=== PATIENT | female | born 1965 | race Caucasian/White ===

== ENCOUNTER 2016-12-16 14:47 | Emergency (ER) | payer MEDICAID ==
[~2016-12-16] VITALS: Ht 167.6 cm; Wt 65.8 kg
[~2016-12-16 14:47] MED LIST: AMOX-426 PO; HYDR-1189 PO
[2016-12-16 14:50] VITALS: BP 150/69; PULSE 94; RESP 18; TEMP 97.1; O2SAT 95
[2016-12-16] MEDS ORDERED: SODIUM BICARBONATE 8.4% VIAL 50 MEQ/50 ML VIAL INJ ONE (17:30)
[2016-12-16] MEDS ORDERED: LIDOCAINE/EPI 2% 1:100000 20 ML VIAL INJ ONE (17:30)
[2016-12-16] MEDS ORDERED: AMOXICILLIN/CLAVULANATE POTASSIUM 875 MG TABLET PO ONE (17:45)
[2016-12-16 18:31] VITALS: BP 133/68; PULSE 78; RESP 20; TEMP 98.3; O2SAT 99
== END 2016-12-16 18:31 | disposition home or self-care (01) ==
LOC: SED 14:47
DX: S90.852A Superficial foreign body, left foot, initial encounter (principal); W22.8XXA Striking against or struck by other objects, initial encounter; Y93.H9 Activity, other involving exterior property and land maintenance, building and construction; Y92.59 Other trade areas as the place of occurrence of the external cause; Y99.8 Other external cause status
CPT/HCPCS: 99284

== ENCOUNTER 2019-04-08 16:48 | Emergency (ER) | payer MEDICAID ==
[~2019-04-08] VITALS: Ht 167.6 cm; Wt 98.9 kg
[2019-04-08 17:16] VITALS: BP_SYST 150
--- NOTE | 2019-04-08 17:21 | NUR ---
Patient triaged and placed in waiting room. VSS and patient appears in no acute distress at this time. Accompanied by self, awaiting available bed, and MD notified of need for MSE.
--- NOTE | 2019-04-08 17:56 | NUR ---
Patient to [facility] for evaluation. Side rails up. Report given to Cortez VAUGHN.
--- NOTE | 2019-04-08 18:06 | NUR ---
PATIENT CAME IN COMPLAINING OF DISCOMFORT IN RIGHT SIDE OF CHEST WHEN SWALLOWING THAT STARTED 5 MONTHS AGO. PATIENT STATES DISCOMFORT NOW HAS RADIATED TO THROAT. PATIENT DENIES RECENT ILLNESS AND DIFFICULTIES SWALLOWING. PATIENT DENIES SOB, NAUSEA, AND VOMITING. PATIENT STATES SHE SMOKES 4 PACKS A WEEK. NO REDNESS OR SWELLING TO THROAT. PATIENT IS ALERT AND ORIENTED X4.
--- NOTE | 2019-04-08 18:45 | NUR ---
ER Dr. Reed at bedside examining patient.
== END 2019-04-08 18:56 | disposition home or self-care (01) ==
LOC: SED 16:48
DX: J02.8 Acute pharyngitis due to other specified organisms (principal); B97.89 Other viral agents as the cause of diseases classified elsewhere; R03.0 Elevated blood-pressure reading, without diagnosis of hypertension; Z79.899 Other long term (current) drug therapy
CPT/HCPCS: 36415; 86403; 87081; 99283

== ENCOUNTER 2022-08-14 18:09 | Emergency (ER) | payer MEDICAID ==
[~2022-08-14] VITALS: Ht 167.6 cm; Wt 81.6 kg
[~2022-08-14 18:09] MED LIST changes: -HYDR-1189 PO; +HYDR-3919 PO
[2022-08-14 19:35] VITALS: BP_SYST 120
--- NOTE | 2022-08-14 19:39 | NUR ---
Patient triaged and placed in waiting room. VSS and patient appears in no acute distress at this time. Accompanied by self, awaiting available bed, and MD notified of need for MSE.
--- NOTE | 2022-08-14 20:14 | NUR ---
ER in waiting room examining patient.
[2022-08-14] MEDS ORDERED: MECL-109 PO (20:48)
[2022-08-14 21:10] VITALS: BP_SYST 122
--- NOTE | 2022-08-14 21:10 | NUR ---
Patient given written and verbal discharge instructions and verbalizes understanding. ER MD discussed with patient the care provided. Patient in stable condition. ID arm band removed. Rx of Meclizine given. Patient educated on pain management and to follow up with PMD. Pain Scale 0/10. Opportunity for questions provided and answered.
== END 2022-08-14 21:10 | disposition home or self-care (01) ==
LOC: SED 18:09
DX: R42 Dizziness and giddiness (principal); R11.10 Vomiting, unspecified; Z79.899 Other long term (current) drug therapy
CPT/HCPCS: 99282